=== PATIENT | male | born 1970 | race Caucasian/White ===

== ENCOUNTER 2019-02-15 08:53 | Emergency (ER) | payer BC ==
[~2019-02-15] VITALS: Ht 172.7 cm; Wt 74.8 kg
[~2019-02-15 08:53] MED LIST: ASPIRIN325 PO; CEPHALEXIN 500500 M3 PO; IBUPROFEN 800800 M1 PO; LISINOPRIL5 MG PO; OMEPRAZOLE40 MG
[2019-02-15] MEDS ORDERED: VALACYCLOVIR500 MG PO (09:02)
[2019-02-15] MEDS ORDERED: PRILOSEC OTC20 MG PO (09:03)
[2019-02-15] MEDS ORDERED: HIGH BLOOD PRESSURE PO (09:06)
[2019-02-15 09:42] LABS: ABSOLUTE BASOPHILS 0.1 thou/uL (0.0-0.2); ABSOLUTE EOSINOPHILS 0.3 thou/uL (0.0-0.7); ABSOLUTE LYMPHOCYTES 1.5 thou/uL (0.8-5.3); ABSOLUTE MONOCYTES 0.5 thou/uL (0.0-1.2); ABSOLUTE NEUTROPHILS 13.4 thou/uL (1.6-8.1); BASOPHILS 0.8 %; EOSINOPHILS 1.7 %; HEMATOCRIT 42.8 % (42.0-52.0); LYMPHOCYTES 9.7 %; MCHC 32.8 g/dL (28.0-37.0); MCV 94.4 fL (80.0-100.0); MONOCYTES 3.1 %; MPV 6.7 fl. (7.2-11.1); NUCLEATED RBCS 0 /100WBC; PLATELET COUNT* 450 thou/uL (150-400); POLYS 84.7 %; RBC 4.53 mil/uL (4.50-6.00); RDW-CV 16.8 % (10.5-14.5); WBC 15.8 thou/uL (4.0-11.0)
[2019-02-15 10:01] LABS: CALCIUM 8.8 mg/dL (8.5-10.1); CREATININE 1.2 mg/dL (0.6-1.3); POTASSIUM 3.9 mmol/L (3.5-5.1)
[2019-02-15 10:05] LABS: TOTAL BILIRUBIN 0.7 mg/dL (<0.1-1.0); TOTAL PROTEIN 6.6 g/dL (6.4-8.2)
[2019-02-15 10:57] LABS: ESR (SEDRATE) 0 mm/hr (0-15)
[2019-02-15] MEDS ORDERED: NORCO 5-325 TA1 EAC1 PO (11:25)
[2019-02-15] MEDS ORDERED: DOXYCYCLINE 10100 MG PO (11:25)
[2019-02-15 12:15] VITALS: BP 140/90
[2019-02-15 12:45] LABS: CLARITY TURBID; SOURCE ELBOW BURSA; TOTAL VOLUME 3 ml
[2019-02-15 12:46] LABS: TOTAL CELL COUNT 3000 /mm3
[2019-02-15 12:48] LABS: BF RBC 275000 /mm3
[2019-02-15 12:52] LABS: BF EOSINOPHILS 1 %; BF LYMPHOCYTES 9 %; BF MONOCYTES 1 %; BF POLYS 89 %
[2019-02-16 12:10] LABS: BODY FLUID PROTEIN 3.8 g/dL (())
[2019-02-16] MEDS ORDERED: MICARDIS HCT 81 EAC1 PO (22:14)
[2019-02-16] MEDS ORDERED: ZETIA10 MG PO (22:17)
[2019-02-18 19:36] LABS: SOURCE ELBOW BURSA
== END 2019-02-15 12:16 | disposition home or self-care (01) ==
LOC: M.ERS 08:53
PROVIDERS: Emergency Medicine Emergency Medical Services
DX: M71.121 Other infective bursitis, right elbow (principal); F17.220 Nicotine dependence, chewing tobacco, uncomplicated; Z98.890 Other specified postprocedural states

== ENCOUNTER 2019-02-16 18:19 | Inpatient (IN) | payer BC ==
[~2019-02-16] VITALS: Ht 172.7 cm; Wt 79.4 kg
[~2019-02-16 18:19] MED LIST changes: +DOXYCYCLINE 10100 MG PO; +HIGH BLOOD PRESSURE PO; +NORCO 5-325 TA1 EAC1 PO; +PRILOSEC OTC20 MG PO; +VALACYCLOVIR500 MG PO
[2019-02-16 18:28] VITALS: BP 158/95
[2019-02-16 18:59] LABS: ABSOLUTE BASOPHILS 0.1 thou/uL (0.0-0.2); ABSOLUTE EOSINOPHILS 0.2 thou/uL (0.0-0.7); ABSOLUTE LYMPHOCYTES 1.2 thou/uL (0.8-5.3); ABSOLUTE MONOCYTES 0.8 thou/uL (0.0-1.2); ABSOLUTE NEUTROPHILS 11.8 thou/uL (1.6-8.1); BASOPHILS 0.8 %; EOSINOPHILS 1.5 %; HEMOGLOBIN 13.4 gm/dL (14.0-18.0); LYMPHOCYTES 8.7 %; MCHC 32.5 g/dL (28.0-37.0); MCV 95.2 fL (80.0-100.0); MONOCYTES 5.4 %; MPV 6.8 fl. (7.2-11.1); NUCLEATED RBCS 0 /100WBC; PLATELET COUNT* 428 thou/uL (150-400); POLYS 83.6 %; RBC 4.31 mil/uL (4.50-6.00); RDW-CV 16.5 % (10.5-14.5); WBC 14.1 thou/uL (4.0-11.0)
[2019-02-16 19:17] LABS: CALCIUM 8.4 mg/dL (8.5-10.1); CREATININE 1.1 mg/dL (0.6-1.3)
[2019-02-16 19:23] LABS: ALBUMIN 3.2 g/dL (3.4-5.0); TOTAL BILIRUBIN 0.4 mg/dL (<0.1-1.0); TOTAL PROTEIN 7.1 g/dL (6.4-8.2)
--- NOTE | 2019-02-16 19:54 | NUR ---
1930 UNABLE TO GIVE PATIENT MEDICATION HE IS IN CT.
[2019-02-16 21:35] VITALS: BP 128/78
[2019-02-16] MEDS ORDERED: MICARDIS HCT 81 EAC1 PO (22:14)
[2019-02-16] MEDS ORDERED: ZETIA10 MG PO (22:17)
[2019-02-16 22:30] VITALS: BP 113/81
[2019-02-17 04:07] LABS: CREATININE 1.2 mg/dL (0.6-1.3); MAGNESIUM 1.9 mg/dL (1.8-2.4); POTASSIUM 3.8 mmol/L (3.5-5.1)
[2019-02-17 04:36] LABS: HEMATOCRIT 39.1 % (42.0-52.0); HEMOGLOBIN 12.7 gm/dL (14.0-18.0); MCH 31.2 pg (26.0-34.0); MCHC 32.4 g/dL (28.0-37.0); MCV 96.2 fL (80.0-100.0); MPV 7.1 fl. (7.2-11.1); RBC 4.07 mil/uL (4.50-6.00); RDW-CV 16.9 % (10.5-14.5); WBC 12.4 thou/uL (4.0-11.0)
[2019-02-17 08:30] VITALS: BP 116/79
[2019-02-17 08:36] VITALS: BP 116/79
--- NOTE | 2019-02-17 08:46 | NUR ---
pt left for surgery by bed at this time. will continue to monitor.
--- NOTE | 2019-02-17 09:51 | EKG ---
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 02/17/1949 9 9 Trav Fuentes MD, FACC /EPI
--- NOTE | 2019-02-17 12:29 | NUR ---
PT RETURNED FROM SURGERY. PT ALERT AND ORIENTED. ROOM AIR. PULSES 2+. IV FLUIDS AND ABX RUNNING. PT C/O PAIN, NORCO GIVEN PRIOR TO TRANSFER. FALL RISK PRECAUTIONS IN PLACE. WILL CONTINUE TO MONITOR.
--- NOTE | 2019-02-17 13:38 | NUR ---
SW met with pt and pt dtr to complete initial assessment, introduce self, and SW role. Pt alert, oriented. Pt independent, pt did not express any dc needs at this time. Pt hopeful to see the surgeon sometime soon; pt curious of more of the details of the procedure. Pt dtr anticipates pt to transition to oral abx at dc; SW to continue to follow to assist with safe dc planning if needs arise.
--- NOTE | 2019-02-17 17:08 | NUR ---
PT REMAINED ALERT AND ORIENTED. PT RESTING IN ROOM. PAIN MEDS GIVEN ORDERED. FALL RISK PRECAUTIONS IN PLACE. HOURLY ROUNDING COMPLETED. WILL CONTINUE TO MONITOR.
[2019-02-17 20:02] VITALS: BP 144/90
[2019-02-18] VITALS: BP 125/64
[2019-02-18 04:00] VITALS: BP 116/59
[2019-02-18 05:21] LABS: HEMATOCRIT 36.4 % (42.0-52.0); HEMOGLOBIN 11.8 gm/dL (14.0-18.0); MCH 31.2 pg (26.0-34.0); MCHC 32.4 g/dL (28.0-37.0); MCV 96.3 fL (80.0-100.0); MPV 6.7 fl. (7.2-11.1); NUCLEATED RBCS 0 /100WBC; PLATELET COUNT* 439 thou/uL (150-400); RBC 3.78 mil/uL (4.50-6.00); WBC 12.3 thou/uL (4.0-11.0)
[2019-02-18 05:42] LABS: ALBUMIN 2.4 g/dL (3.4-5.0); CALCIUM 7.9 mg/dL (8.5-10.1); CREATININE 1.1 mg/dL (0.6-1.3); POTASSIUM 4.2 mmol/L (3.5-5.1); TOTAL BILIRUBIN 0.4 mg/dL (<0.1-1.0); TOTAL PROTEIN 5.7 g/dL (6.4-8.2)
[2019-02-18 06:06] LABS: HEPATITIS B SURFACE AG Negative (Negative)
[2019-02-18 06:07] LABS: ABSOLUTE LYMPHOCYTES 0.9 thou/uL (0.8-5.3); ABSOLUTE MONOCYTES 0.7 thou/uL (0.0-1.2); ABSOLUTE NEUTROPHILS 10.7 thou/uL (1.6-8.1); HYPOCHROMASIA 1+; PLATELET ESTIMATE INCREASED
[2019-02-18 06:08] LABS: ANISOCYTOSIS 1+; POIKILOCYTOSIS 1+; POLYCHROMASIA Occasional
--- NOTE | 2019-02-18 06:24 | NUR ---
REWRAPPED ELBOW OVERNIGHT, PATIENT PREFERS IT ON LOOSELY. CONTINUED IV ROCEPHIN AND PO HYDROCODONE, PAIN WELL MANAGED THROUGHOUT THE NIGHT. HE WAS ABLE TO SLEEP MOST OF THE SHIFT. CONTINUING IV ABX, WBAT ON RUE TO KEEP WRAPPED AND DRAIN STILL IN PLACE. ORTHO SAW AND WILL CONTINUE TO MONITOR
[2019-02-18 07:10] VITALS: BP 124/65
--- NOTE | 2019-02-18 11:17 | NUR ---
PLACED CALL TO DR. PLATA'S OFFICE WITH REQUEST TO HAVE THE HEALTH COMMUNICATIONS SPECIALIST RESIDENT CALL BACK TO LET THERAPY KNOW WHAT ROM RESTRICTIONS PT. HAS, INCLUDING AROM, PROM, AND AAROM IF APPLICABLE. WAITING ON RETURN CALL PRIOR TO EVALUATING PT.
--- NOTE | 2019-02-18 11:32 | CON ---
[address] [address] CONSULTATION Name: AUGUSTAJIMENA GRZEGORZ Room: [address] IN .R.#: [id number] Admission: 02/16/19 Attend Phys: Isabella Molina MD Discharge: Date of : 74 Report #: [id number] THIS REPORT FOR: //name// CC: Chidilizzeth Марина Molina DATE OF SERVICE: 02/17/2019 INFECTIOUS DISEASE CONSULTATION ATTENDING PHYSICIAN: Isabella Molina MD REASON FOR EVALUATION: Right olecranon septic bursitis. HISTORY OF PRESENT ILLNESS: Chart reviewed, patient examined. This is a 48-year-old gentleman without significant chronic medical history who presented to the emergency room twice this week complaining about swelling and pain over the left olecranon site involving his right elbow. He notes dating back to July he has had 3 episodes where it nonpainful swelling. This was aspirated, felt to have a bursitis, treated symptomatically; however, more recently had increasing pain over the course of last few days prior to admission. It is not clear that he had any fevers. He generally felt malaise, was evaluated in the emergency room for aspiration. There is question of exudative process potentially septic. He was treated with narcotic analgesics as well as empiric therapy with doxycycline. Blood and urine cultures were obtained thus far have been unrevealing. Due to his worsening signs and symptoms, he was admitted, at this point was found to have elevated CRP of 85. White count of 12.4, sed rate of 17. Imaging of the right upper extremity was somewhat nonspecific. He is tentatively scheduled to undergo operative debridement this afternoon. Empirically started on antimicrobial therapy with clindamycin. Denies any pulmonary or gastrointestinal related complaints. He has not had new onset eruptions. ALLERGIES: None. CURRENT MEDICATIONS: Include amlodipine, pantoprazole, clindamycin 600 IV q.8h., p.r.n. analgesics and antiemetics. PAST MEDICAL HISTORY: History of diverticulitis with perforation requiring partial left-sided colectomy with ostomy subsequent reversal. He has had history of shoulder injuries, previous tonsillectomy. SOCIAL HISTORY: Nonsmoker. No illicit drug use. Occasional ethanol. FAMILY HISTORY: [place] [address] CONSULTATION Name: JIMENA DERAS JR Room: [address]#: [id number] Admission: 02/16/19 Attend Phys: Isabella Molina MD Discharge: Date of : 74 Report #: [id number] REVIEW OF SYSTEMS: Otherwise, unremarkable 10-point review of systems exception noted above in history of present illness. PHYSICAL EXAMINATION: GENERAL: Alert, cooperative, appropriate, in gyen-af-wzwhzzmz distress, appears to be well nourished. VITAL SIGNS: Temperature 98, pulse 86, respirations 18, blood pressure 116/79. SKIN: Warm, dry. There are no rashes. HEENT: Normocephalic. Extraocular muscles intact. NECK: Supple. LUNGS: Generally clear to auscultation. HEART: Regular rate and rhythm without murmur. ABDOMEN: Soft, nontender, nondistended. EXTREMITIES: Right upper extremity overlying the olecranon, there is excess fluid in the bursa. It is quite tender. There is some moderate inflammatory changes extend up proximally on the arm. At this point, there is no expressible purulence. Does have slightly decreased range of motion of the elbow, but it is not consistent with septic arthritis. GENITOURINARY: Deferred. RECTAL: Deferred. LABORATORY DATA: Blood cultures are sterile thus far. CRP 85.5. CBC: White count 12.4, H and H 12.7 and 39.1 and platelets of 429. Sed rate of 17. Electrolytes: Sodium 138, potassium 3.8, chloride 101, bicarbonate is 31, anion gap of 6, BUN and creatinine 9 and 1.2, glucose of 101. Estimated GFR of 65. CPK elevated at 659. Liver functions were remarkable for ALT of 102, AST of 56. Lactic acid 1. Fluid analysis of the bursa was red, turbid, 3000 white cells, 275,000 red cells, 89% polys, 9% lymphs. Culture is pending. ASSESSMENT AND PLAN: Right septic olecranon bursitis. Agree with empiric antimicrobial therapy, would presume a gram-positive etiology likely skin related. We will continue to follow the cultures. Follow up postoperatively. Does have elevated liver function tests of unclear etiology. We will check hepatitis C antibody. <ELECTRONICALLY SIGNED> By: James Wood MD 02/18/19 1132 0931 [id number] Wood MD /artie
--- NOTE | 2019-02-18 13:58 | OP ---
[address] [address] OPERATIVE REPORT Name: JIMENA DERAS JR Room: [address] IN ..#: [id number] Admission: 02/16/19 Attend Phys: Isabella Molina MD Discharge: Date of : 74 Report #: [id number] THIS REPORT FOR: //name// CC: Alexandria Molina DATE OF SERVICE: 02/17/2019 PREOPERATIVE DIAGNOSES: Septic olecranon bursitis of the right elbow with arm cellulitis proximal to distal. POSTOPERATIVE DIAGNOSES: Septic olecranon bursitis of the right elbow with arm cellulitis proximal to distal. SURGERY PERFORMED: 1. Removal of septic olecranon bursa of the right elbow. 2. Bursal tissue cultures specimen and fluid culture. SURGEON: Sherif Clark DO TAPE LIBRARIAN: Dr. Acevedo. ANESTHESIA: General anesthetic. ANTIBIOTICS: The patient has been on scheduled clindamycin. DRAINS: The patient has Andrea x1 to the right elbow. ESTIMATED BLOOD LOSS: Minimal, less than 25 mL. COMPLICATIONS: No complications. GROSS FINDINGS: Prior to surgery, this gentleman has fought the swelling of this right elbow region for the last several weeks. He eventually came to the ER this weekend with a slightly elevated white count, was put on p.o. antibiotics and then returns with worsening pain. The patient remembers having a small pimple type lesion on his elbow couple of weeks ago that he said he popped, that is the only thing that he did remember. The patient on his physical examination otherwise demonstrate streaking up to two-thirds of the upper extremity and a third of the forearm area for cellulitis. Intraoperative findings correlated with a necrotic hemorrhagic right olecranon bursa with some purulent material. There were no other bony destructive changes. SURGERY IN DETAIL: This gentleman was taken to the operating room and placed on table, given the benefit of general anesthetic. He had a well-padded tourniquet placed on his right upper extremity. He did have a well-[place] [address] OPERATIVE REPORT Name: JIMENA DERAS JR Room: [address] IN [facility].#: [id number] Admission: 02/16/19 Attend Phys: Isabella Molina MD Discharge: Date of : 74 Report #: [id number] applied and chlorhexidine prep, and sterile draping for right arm surgery was next done with a timeout called and verified by everyone in the room for the right arm. At this point in time, tourniquet was inflated to 250 mmHg. A midline incision was made over the olecranon region with a 15 blade scalpel through skin and subcutaneous tissues. Initially, the bursa was seen and was sharply initially incised and then the bursal popped. We did take cultures of the fluid as well as removed half of the olecranon bursa and sent that for tissue cultures on the radial side. This necrotic olecranon bursa was then removed in toto on the medial side by scissors technique. I rongeured off the olecranon process itself as there was necrotic area over top of that. I then did a copious normal saline irrigation across the surgical site. Tourniquet was deflated. Hemostasis was maintained. A Andrea drain was placed deep within the incision. The skin was closed subcutaneously with 2-0 Monocryl and nylon to close. Xeroform, 4 x 4s, compressive Filipe wrap dressing was applied. This gentleman was taken off the table to recovery room in stable condition. I attest I was present for all critical aspects of the surgery. Needle, instrument, sponge counts correct. <ELECTRONICALLY SIGNED> By: Sherif Clark DO 02/18/19 1358 1031 [id number] Clark DO /nt
--- NOTE | 2019-02-18 15:02 | NUR ---
ORDERS RECEIVED AND CHART REVIEWED. PATIENT INDICATES THAT HE IS INDEPENDENT WITH AMBULATION. HE ONLY HAS R ELBOW PAIN. ROM/STRENGTHENING FOR RIGHT ELBOW IS DEFERRED TO O.T. FOR FURTHER ASSESSMENT. THANK-YOU FOR THIS REFERRAL. LONNIE SON, MPT
[2019-02-18 16:00] VITALS: BP 140/85
--- NOTE | 2019-02-18 17:03 | NUR ---
PT REMAINED ALERT AND ORIENTED. PT C/O PAIN, MEDS GIVEN ORDERED. FALL RISK PRECAUTIONS IN PLACE. DRESSING CHANGED TODAY BY SURGERY. IV ABX GIVEN ORDERED. HOURLY ROUNDING COMPLETD. WILL CONTINUE TO MONITOR.
[2019-02-18 20:40] VITALS: BP 152/84
--- NOTE | 2019-02-19 04:18 | NUR ---
PT ALERT AND ORIENTED. VSS RA. IV ABX GIVEN ORDERED. PAIN CONTREOLLED WITH NORCO. DRESSING TO RT ELBOW INTACT. HOURLY ROUNDING COMPLETED. WILL CONTINUE TO MONITOR.
[2019-02-19 05:08] LABS: ABSOLUTE BASOPHILS 0.1 thou/uL (0.0-0.2); ABSOLUTE LYMPHOCYTES 1.4 thou/uL (0.8-5.3); ABSOLUTE MONOCYTES 0.6 thou/uL (0.0-1.2); ABSOLUTE NEUTROPHILS 11.1 thou/uL (1.6-8.1); BASOPHILS 0.4 %; HEMATOCRIT 38.4 % (42.0-52.0); HEMOGLOBIN 12.2 gm/dL (14.0-18.0); LYMPHOCYTES 10.7 %; MCH 30.7 pg (26.0-34.0); MCHC 31.7 g/dL (28.0-37.0); MONOCYTES 4.5 %; MPV 6.9 fl. (7.2-11.1); NUCLEATED RBCS 0 /100WBC; PLATELET COUNT* 506 thou/uL (150-400); POLYS 84.4 %; RBC 3.96 mil/uL (4.50-6.00); RDW-CV 17.1 % (10.5-14.5); WBC 13.1 thou/uL (4.0-11.0)
[2019-02-19 05:23] LABS: CALCIUM 7.9 mg/dL (8.5-10.1); CREATININE 1.1 mg/dL (0.6-1.3); POTASSIUM 4.3 mmol/L (3.5-5.1)
[2019-02-19 08:40] VITALS: BP 147/94
[2019-02-19 16:00] VITALS: BP 143/90
--- NOTE | 2019-02-19 16:30 | NUR ---
CALLED IN PRESCRIPTION WRITTEN FOR ZYVOX, WRITTEN, TO PT.'S PHARMACY[facility]. COPAY IS $72.34. INFORMED PT. HE SAID HE COULD AFFORD THAT. HE HAS A BENEFIT PACKAGE THROUGH HIS INSURANCE. AWAITING SENSITIVITIES ON CX. WILL REMAIN IN HOSPITAL AND ON IVAB UNTIL THOSE RETURN.
--- NOTE | 2019-02-19 18:34 | NUR ---
PATIENT PLEASANT AND COOPERATIVE THIS SHIFT. INDEP IN RM AND AMB IN HALLS, NOTED STEADY GAIT. IV SITE CHANGED THIS AFTERNOON, SEE IV NOTES. DRSG CHANGE TO RT ELBOW SURG SITE X3 THIS SHIFT. SCANT DRNG.
--- NOTE | 2019-02-19 19:00 | NUR ---
PATIENT PLEASANT AND COOPERATIVE THRU SHIFT. INDEP IN RM AND HALLWAYS, STEADY GAIT. SEE MAR FOR PAIN CONTROL. SURGICAL SITE DRSG CHANGED. SUTURES NOTED WNL, EMOLLIENT DRSG, OVER SUTURES, GAUZE, ABD AND KERLIX OVER SITE, COVERED W/ SARI WRAP.
[2019-02-19 20:40] VITALS: BP 166/99
[2019-02-20] VITALS: BP 136/92
--- NOTE | 2019-02-20 04:21 | NUR ---
PT A&O X4. MEDS GIVEN ORDERED. PAIN MANAGED WITH NORCO. RT ARM DRESSING INTACT. PT SLEEPING WELL THROUGH THE NIGHT. HOURLY ROUNDING COMPLETED. WILL CONTINUE TO MONITOR.
[2019-02-20 07:47] VITALS: BP 143/92
[2019-02-20 09:19] VITALS: BP 143/92
[2019-02-20] MEDS ORDERED: DICLOXACILLIN500 MG PO ×2 (09:24→11:13)
[2019-02-20] MEDS ORDERED: NORCO 5-325 TA1 EAC1 PO (11:13)
[2019-02-20] MEDS ORDERED: TRAMADOL 50 MG50 MG PO (11:17)
--- NOTE | 2019-02-20 11:47 | NUR ---
PT DISCHARGED AT 1145 WITH NURSING STAFF TO HOME. IV OUT. DRESSING C/D/I. PT STABLE UPON DISCHARGE. PAPER SCRIPTS GIVEN WITH CARE NOTES.
== END 2019-02-20 11:45 | disposition home or self-care (01) | DRG 501 ==
LOC: M.ERS 18:19 → M.TBA-ER 20:13 → M.ORTHSURG 20:13
PROVIDERS: Family Medicine; Nurse Practitioner Psychiatric/Mental Health; Specialist; ADMIT Internal Medicine
PROC: 0MB30ZZ Excision of Right Elbow Bursa and Ligament, Open Approach (ICD-10-PCS; principal; 2019-02-17)
DX: M71.121 Other infective bursitis, right elbow (principal); L03.113 Cellulitis of right upper limb; F17.220 Nicotine dependence, chewing tobacco, uncomplicated; Z90.49 Acquired absence of other specified parts of digestive tract; Z79.899 Other long term (current) drug therapy

== ENCOUNTER 2019-05-24 18:17 | Emergency (ER) | payer BC ==
[~2019-05-24] VITALS: Ht 172.7 cm; Wt 77.1 kg
[~2019-05-24 18:17] MED LIST changes: +DICLOXACILLIN500 MG PO; +MICARDIS HCT 81 EAC1 PO; +TRAMADOL 50 MG50 MG PO; +ZETIA10 MG PO
[2019-05-24] MEDS ORDERED: CARVEDILOL12.5 MG PO (18:25)
[2019-05-24] MEDS ORDERED: COZAAR 25 MG TA25 M1 PO (18:25)
[2019-05-24] MEDS ORDERED: ADDERALL 10 MG10 MG PO (18:25)
[2019-05-24 18:57] LABS: ABSOLUTE BASOPHILS 0.1 thou/uL (0.0-0.2); ABSOLUTE EOSINOPHILS 0.3 thou/uL (0.0-0.7); ABSOLUTE LYMPHOCYTES 1.8 thou/uL (0.8-5.3); ABSOLUTE MONOCYTES 0.6 thou/uL (0.0-1.2); ABSOLUTE NEUTROPHILS 4.8 thou/uL (1.6-8.1); BASOPHILS 1.1 %; EOSINOPHILS 3.7 %; HEMATOCRIT 41.3 % (42.0-52.0); HEMOGLOBIN 13.9 gm/dL (14.0-18.0); LYMPHOCYTES 23.8 %; MCH 30.5 pg (26.0-34.0); MCHC 33.7 g/dL (28.0-37.0); MCV 90.7 fL (80.0-100.0); MPV 6.8 fl. (7.2-11.1); NUCLEATED RBCS 0 /100WBC; PLATELET COUNT* 421 thou/uL (150-400); POLYS 63.4 %; RBC 4.56 mil/uL (4.50-6.00); RDW-CV 14.9 % (10.5-14.5); WBC 7.5 thou/uL (4.0-11.0)
[2019-05-24 19:09] LABS: CALCIUM 8.7 mg/dL (8.5-10.1); CREATININE 1.2 mg/dL (0.6-1.3); POTASSIUM 3.5 mmol/L (3.5-5.1)
[2019-05-24 19:20] LABS: ALBUMIN 3.6 g/dL (3.4-5.0); TOTAL BILIRUBIN 0.2 mg/dL (<0.1-1.0)
[2019-05-24 19:37] VITALS: BP 121/58
--- NOTE | 2019-05-26 10:49 | EKG ---
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 : 1970 Requested By: Octavio Dunn Order Number: [id number] MD: Ricardo Vasquez Measurements Intervals [place] Rate: 90 P: 64 MN: 132 QRS: 33 QRSD: 79 T: -18 QT: 332 QTc: 407 Interpretive Statements Sinus rhythm Premature ventricular complexes Borderline T abnormalities, inferior leads Compared to ECG 02/17/2019 09:10:13 Ventricular premature complex(es) now present T-wave abnormality still present Electronically Signed On 05-26-2019 10:49:28 MENTAL RETARDATION AIDE by Ricardo Vasquez [email or web address] <ELECTRONICALLY SIGNED> By: Ricardo Vasquez MD, [facility] 05/26/19 1049 1824 182 Ricardo Vasquez MD, [facility] /EPI
== END 2019-05-24 19:37 | disposition home or self-care (01) ==
LOC: M.ERS 18:17
PROVIDERS: Emergency Medicine Emergency Medical Services
DX: R00.2 Palpitations (principal); I10 Essential (primary) hypertension; F90.9 Attention-deficit hyperactivity disorder, unspecified type; F17.220 Nicotine dependence, chewing tobacco, uncomplicated; Z98.890 Other specified postprocedural states